=== PATIENT | female | born 1980 | race Hispanic/Latino ===

== ENCOUNTER 2017-11-24 10:55 | Outpatient (CLI) | payer BC ==
--- NOTE | 2017-11-24 11:13 | RAD ---
PA AND LATERAL CHEST: Date: 11-24-17 History: Cough, mucous build up for one month. Comparison: 10-01-16 FINDINGS: There is a focal area of consolidation seen within the anterior aspect of the right middle lobe most suggestive of pneumonia. The left lung is clear. Cardiac silhouette and pulmonary vasculature are wit hin normal limits. No other interval change from prior study. IMPRESSION: Right middle lobe pneumonia. Follow up to complete resolution is recommended. POS: [facility]
== END 2017-11-24 10:56 | disposition home or self-care (01) ==
LOC: SCSRAD 10:55
PROVIDERS: ATTEND Family Medicine
DX: R05 Cough (principal); J18.9 Pneumonia, unspecified organism
CPT/HCPCS: 71046

== ENCOUNTER 2018-03-03 15:19 | Outpatient (CLI) | payer BC ==
[2018-03-03] MEDS ORDERED: Gadobenate Dimeglumine 529 MG/1 ML (20ML VIAL) ONE (16:15)
== END 2018-03-03 15:20 | disposition home or self-care (01) ==
LOC: BICMRI 15:19
PROVIDERS: ATTEND Psychiatry & Neurology Neurology
DX: R56.9 Unspecified convulsions (principal)
CPT/HCPCS: 70553; A9579

== ENCOUNTER 2018-03-23 17:34 | Emergency (ER) | payer BC ==
[2018-03-23 18:34] LABS: #Basophils 0.1 thou/uL (0.0-0.2); #Eosinphils 0.1 thou/uL (0.0-0.7); #Lymphocytes 3.4 thou/uL (1.20-3.40); #Monocytes 0.4 thou/uL (0.11-0.59); #Neutrophils 4.1 thou/uL (1.40-6.50); %Basophils 1.3 % (0.0-1.0); %Eosinophils 1.5 % (0.0-10.0); %Lymphocytes 41.4 % (21.0-51.0); %Monocytes 5.2 % (0.0-10.0); %Neutrophils 50.5 % (42.0-75.0); Hemoglobin 11.7 g/dL (12.0-16.0); Mean Corpuscular HGB CONC 32.3 g/dL (32.0-36.0); Mean Corpuscular Hemoglobin 26.4 pg (27.0-31.0); Mean Corpuscular Volume 81.7 fl (81.0-99.0); Mean Platelet Volume 8.7 fL (7.4-10.4); Platelet Count 299 thou/uL (130-400); RBC Distribution Width 16.1 % (11.5-14.5); Red Blood Cell (RBC) Count 4.43 mill/uL (4.20-5.40); White Blood Cell (WBC) Count 8.1 thou/uL (4.8-10.8)
--- NOTE | 2018-03-23 19:01 | CT ---
CT BRAIN PERFORMED WITHOUT CONTRAST ENHANCEMENT: HISTORY: Seizure. FINDINGS: The ventricular and cisternal system is within normal limits. There are no signs of intracerebral he morrhage or extraaxial fluid collections. No mass lesion or mass effect. IMPRESSION: No acute intracranial abnormalities. POS: [facility]
[2018-03-23 19:02] LABS: ALT (SGPT) 8 U/L (8-55); AST (SGOT) 12 U/L (5-34); Albumin 4.3 g/dL (3.5-5.0); Alkaline Phosphatase 82 U/L (40-150); Anion Gap 9 mmol/L (10-20); BUN (Urea Nitrogen) 19 mg/dL (7.0-18.7); Bilirubin, Total 0.6 mg/dL (0.2-1.2); Calc. Creatinine Clearance 0 mL/min (70-130); Calcium 8.9 mg/dL (7.8-10.44); Carbon Dioxide 24 mmol/L (22-29); Chloride 111 mmol/L (98-107); Estimated GFR-MDRD 71; Globulin 2.8 g/dL (2.4-3.5); Glucose 138 mg/dL (70-105); Potassium 3.7 mmol/L (3.5-5.1); Protein, Total 7.1 g/dL (6.0-8.3); Sodium 140 mmol/L (136-145)
[2018-03-23] MEDS ORDERED: Lorazepam 2 MG/ML VIAL ONE (19:12)
== END 2018-03-23 20:17 | disposition home or self-care (01) ==
LOC: ERS 17:34
DX: R06.4 Hyperventilation (principal); G40.909 Epilepsy, unspecified, not intractable, without status epilepticus; E11.9 Type 2 diabetes mellitus without complications; F41.9 Anxiety disorder, unspecified; F17.210 Nicotine dependence, cigarettes, uncomplicated; Z79.899 Other long term (current) drug therapy; Z79.4 Long term (current) use of insulin
CPT/HCPCS: 36415; 70450; 80053; 84146; 85025; 96360; J2060

== ENCOUNTER 2018-03-24 18:54 | Emergency (ER) | payer BC ==
[2018-03-24 19:40] LABS: #Basophils 0.1 thou/uL (0.0-0.2); #Eosinphils 0.1 thou/uL (0.0-0.7); #Lymphocytes 3.1 thou/uL (1.20-3.40); #Monocytes 0.6 thou/uL (0.11-0.59); #Neutrophils 5.9 thou/uL (1.40-6.50); %Basophils 1.1 % (0.0-1.0); %Eosinophils 1.1 % (0.0-10.0); %Lymphocytes 31.9 % (21.0-51.0); %Monocytes 6.3 % (0.0-10.0); %Neutrophils 59.6 % (42.0-75.0); Mean Corpuscular HGB CONC 33.4 g/dL (32.0-36.0); Mean Corpuscular Hemoglobin 27.2 pg (27.0-31.0); Mean Corpuscular Volume 81.6 fl (81.0-99.0); Mean Platelet Volume 8.5 fL (7.4-10.4); Platelet Count 272 thou/uL (130-400); RBC Distribution Width 15.9 % (11.5-14.5); Red Blood Cell (RBC) Count 4.04 mill/uL (4.20-5.40); White Blood Cell (WBC) Count 9.8 thou/uL (4.8-10.8)
[2018-03-24 20:00] LABS: Anion Gap 9 mmol/L (10-20); BUN (Urea Nitrogen) 16 mg/dL (7.0-18.7); Bilirubin, Total 0.6 mg/dL (0.2-1.2); Calc. Creatinine Clearance 0 mL/min (70-130); Calcium 8.3 mg/dL (7.8-10.44); Carbon Dioxide 21 mmol/L (22-29); Chloride 113 mmol/L (98-107); Estimated GFR-MDRD 74; Globulin 2.7 g/dL (2.4-3.5); Glucose 163 mg/dL (70-105); Potassium 3.6 mmol/L (3.5-5.1); Protein, Total 6.7 g/dL (6.0-8.3); Sodium 139 mmol/L (136-145)
[2018-03-24 20:01] LABS: ALT (SGPT) Less than 7 U/L (8-55); AST (SGOT) 10 U/L (5-34); Alkaline Phosphatase 73 U/L (40-150)
[2018-03-24] MEDS ORDERED: Lorazepam 2 MG/ML VIAL ONE (20:08)
[2018-03-24 21:44] LABS: Bilirubin Negative (Negative); Blood, Urine Negative (Negative); Clarity CLEAR (Clear); Glucose, Urine (Dipstick) Negative (Negative); Leukocyte Negative (Negative); Nitrite Negative (Negative); Protein, Urine (Dipstick) Trace mg/dL (Neg-Trace); Specific Gravity, Urine 1.023 (1.002-1.036); pH, Urine 6.5 (5.0-9.0)
[2018-03-24 21:53] LABS: Amphetamine Not Detected (NotDetected); Barbiturates Screen Not Detected (NotDetected); Benzodiazepine Screen Detected (NotDetected); Cocaine Metabolite Screen Not Detected (NotDetected); Medtox Control Line Valid? VALID (VALID); Medtox Reader # READER 4; Methadone Not Detected (NotDetected); Methamphetamine Not Detected (NotDetected); Opiate Screen Not Detected (NotDetected); Oxycodone Screen Not Detected (NotDetected); Phencyclidine (PCP) Not Detected (NotDetected); THC/Cannabinoid Screen Not Detected (NotDetected); Tricyclic Screen Not Detected (NotDetected)
== END 2018-03-24 21:47 | disposition left against medical advice (07) ==
LOC: ERS 18:54
DX: R56.9 Unspecified convulsions (principal); E11.9 Type 2 diabetes mellitus without complications; F41.9 Anxiety disorder, unspecified; F17.210 Nicotine dependence, cigarettes, uncomplicated; Z79.4 Long term (current) use of insulin; Z79.899 Other long term (current) drug therapy
CPT/HCPCS: 36415; 80053; 80306; 81003; 85025; 96374; J2060

== ENCOUNTER 2018-10-14 12:15 | Day surgery (SDC) | payer BC ==
[2018-10-13 13:14] VITALS: BMI 23.6
[2018-10-14] MEDS ORDERED: Sodium Bicarbonate 2.5 MEQ/5 ML VIAL ONE (13:58)
[2018-10-14 14:08] VITALS: BP 99/64; TEMP 98.5
--- NOTE | 2018-10-14 15:09 | ULT ---
THYROID ULTRASOUND WITH BECKER SCALE AND DOPPLER COLOR FLOW IMAGING: CLINICAL HISTORY: Right thyroid nodule. COMPARISON: Comparison imaging is not available. A prior report denotes thyroid gland heterogeneity without docu mentation of a discrete nodule. FINDINGS: There is a circumscribed relatively isoechoic, solid echotexture nodule within the right thyroid lobe . Small internal cystic foci are present. The nodule measures 2.4 x 1.8 x 1.5 cm. Thyroid isthmus measures 2 mm. No discrete left thyroid lesion. Doppler color flow is performed which does reveal a moderate degree of vascularity within the dominant right thyroid nodule. IMPRESSION: Dominant solid nodule of the right thyroid lobe measuring 2.4 cm in largest diameter. The finding is amenable to fine needle aspiration, which would be performed subsequently, at the request of the [facility]'s physician, Dr. Ishaan Strange. POS: [facility]
--- NOTE | 2018-10-14 16:02 | ULT ---
ULTRASOUND GUIDED RIGHT THYROID NODULE FINE NEEDLE ASPIRATION: CLINICAL HISTORY: Dominant nodule right thyroid lobe. PROCEDURE: Informed consent was obtained. The patient was escorted to the procedural suite and placed in supine position. The right neck was prepped and draped in standard sterile fashion and the nodule of inter est within the right thyroid lobe was localized sonographically. Topical anesthesia with buffered 1% Lidocaine was performed and subsequently 4 separate FNA procedures utilizing 25-gauge needles were p erformed under real-time sonography. Imaging was stored for documentation. There are no procedural complications. Specimens were provided to the attending pathology department strategic partnership representative. The sp ecimen was deemed adequate for interpretation and the procedure was subsequently terminated. All dev ices were removed from the patient. There were no procedural complications. The patient was dischar ged in stable condition. IMPRESSION: Technically successful ultrasound-guided fine needle aspiration of right thyroid nodule. POS: [facility]
== END 2018-10-14 14:30 | disposition home or self-care (01) ==
LOC: ULT 12:15
PROVIDERS: ATTEND Otolaryngology Plastic Surgery within the Head & Neck
PROC: 0GBH3ZX Excision of Right Thyroid Gland Lobe, Percutaneous Approach, Diagnostic (ICD-10-PCS; principal; 2018-10-14)
DX: E04.1 Nontoxic single thyroid nodule (principal)
CPT/HCPCS: 10022; 76536; 76942; 88173

== ENCOUNTER 2020-02-13 13:33 | Emergency (ER) | payer BC ==
[2020-02-13] MEDS ORDERED: Iopamidol 370 76% 100 ML VIAL ONE (13:42)
[2020-02-13 14:05] LABS: #Basophils 0.1 thou/uL (0.0-0.2); #Eosinphils 0.1 thou/uL (0.0-0.7); #Monocytes 0.5 thou/uL (0.11-0.59); #Neutrophils 7.9 thou/uL (1.40-6.50); %Basophils 0.9 % (0.0-1.0); %Eosinophils 1.1 % (0.0-10.0); %Lymphocytes 25.8 % (21.0-51.0); %Monocytes 4.3 % (0.0-10.0); %Neutrophils 67.9 % (42.0-75.0); Hemoglobin 9.8 g/dL (12.0-16.0); Mean Corpuscular HGB CONC 30.3 g/dL (32.0-36.0); Mean Corpuscular Hemoglobin 20.3 pg (27.0-31.0); Mean Corpuscular Volume 66.9 fL (78.0-98.0); Platelet Count 318 thou/uL (130-400); RBC Distribution Width 17.6 % (11.5-14.5); Red Blood Cell (RBC) Count 4.84 mill/uL (4.20-5.40); White Blood Cell (WBC) Count 11.6 thou/uL (4.8-10.8)
[2020-02-13] MEDS ORDERED: Ondansetron PF 4 MG/2 ML Vial ONE (14:16)
[2020-02-13 14:23] LABS: ALT (SGPT) 7 U/L (8-55); AST (SGOT) 14 U/L (5-34); Albumin 4.7 g/dL (3.5-5.0); Alkaline Phosphatase 120 U/L (40-110); Anion Gap 14 mmol/L (10-20); BUN (Urea Nitrogen) 14 mg/dL (7.0-18.7); Calc. Creatinine Clearance 0 mL/min (70-130); Calcium 9.2 mg/dL (7.8-10.44); Carbon Dioxide 23 mmol/L (22-29); Chloride 106 mmol/L (98-107); Estimated GFR-MDRD 69; Globulin 3.1 g/dL (2.4-3.5); Glucose 164 mg/dL (70-105); Potassium 3.6 mmol/L (3.5-5.1); Protein, Total 7.8 g/dL (6.0-8.3); Sodium 139 mmol/L (136-145)
[2020-02-13 14:28] LABS: Large Platelets SLIGHT; MDiff Complete? YES; Microcytosis MODERATE=15-30 cells (100X) (0-5/hpf); Ovalocytes SLIGHT = 2-5 cells (100X) (0-1/hpf); Platelet Morphology Comment Appears Adequate; Polychromasia MODERATE = 3-4 cells (100X) (0-2/hpf); Target Cells SLIGHT = 2-5 cells (100X) (0-1/hpf); Tear Drops SLIGHT = 2-5 cells (100X) (0-1/hpf)
[2020-02-13 14:29] LABS: Bilirubin Negative (Negative); Blood, Urine Negative (Negative); Clarity Clear (Clear); Glucose, Urine (Dipstick) 30 mg/dL (Negative); Leukocyte 25 Leu/uL (Negative); Nitrite 2+ (Negative); Pregnancy Test - Urine (BHCG) Negative (Negative); Pregu Control Background? CLEAR/WHITE (CLR/WHITE); Pregu Control Bar Appear? YES (CONTROL BAR); Protein, Urine (Dipstick) 50 mg/dL (Neg-Trace); Specific Gravity 1.038 (1.002-1.036); Squamous Epithelial 0-3 HPF (0-3); WBC/HPF 0-3 HPF (0-3)
[2020-02-13 14:30] LABS: Bacteria/HPF 1+ HPF (None Seen)
--- NOTE | 2020-02-13 16:13 | CT ---
CT ABDOMEN AND PELVIS WITH IV CONTRAST 02/13/2020 CLINICAL INFORMATION: Vomiting. History of prior gastric sleeve procedure. COMPARISON: None. Technique: Multiple contiguous axial CT images are obtained through the abdomen and pelvis with IV contrast. Cor onal reformatted images are provided. FINDINGS: Lower Chest: Lung bases are clear. Vessels: Abdominal aorta is normal in caliber without evidence of an aortic dissection. Abdomen: Portal vein:Patent Gallbladder: Within normal limits for CT imaging. Liver: within normal limits. Spleen: within normal limits. Pancreas: within normal limits. Adrenals: within normal limits. Kidneys: within normal limits. Bowel: Postsurgical changes of the stomach are present likely due to patient's history of prior gastr ic sleeve procedure. Small hiatal hernia is present. Small to moderate amount retained fecal material in seen throughout the colon suggesting constipation. Opacified loops of small bowel are nor mal in caliber. Appendix: The appendix is visualized and normal in caliber. Peritoneum: No ascites or free air; no fluid collection. Mesentery and Retroperitoneum: No enlarged mesenteric or retroperitoneal lymph nodes. Abdominal Wall: within normal limits. Pelvis: Reproductive Organs: No pelvic mass is seen. There is evidence of bilateral tubal ligation. Pelvis within normal limits. Bladder: within normal limits. Bones: No suspicious lytic or sclerotic osseous lesions are identified. IMPRESSION: 1. Constipation. 2. Postsurgical changes stomach related to history of gastric sleeve procedure. Small hiatal hernia i s present. 3. No acute findings are seen in the abdomen or pelvis.
== END 2020-02-13 17:57 | disposition home or self-care (01) ==
LOC: ERS 13:33
DX: N39.0 Urinary tract infection, site not specified (principal); R11.2 Nausea with vomiting, unspecified; E11.9 Type 2 diabetes mellitus without complications; F41.9 Anxiety disorder, unspecified; F17.210 Nicotine dependence, cigarettes, uncomplicated; Z79.4 Long term (current) use of insulin
CPT/HCPCS: 74177; 80053; 81003; 81015; 81025; 83690; 85025; 87077; 87086; 87186; 96361; 96374; J2405; Q9967